=== PATIENT | male | born 1940 | race Caucasian/White ===

== ENCOUNTER 2018-02-14 03:33 | Inpatient (IN) | payer OTHER, BC ==
[~2018-02-14] VITALS: Ht 182.9 cm; Wt 105.6 kg
[2018-02-14] VITALS (7 sets, daily range): BP systolic 148–186; BP diastolic 68–91
--- NOTE | ~2018-02-14 | CATHLAB ---
[facility] [address] [place] [address] INVASIVE PROCEDURE REPORT Name: BAUDILIOSANTO Room #: 207-P [facility] IN [facility].#: [id number] Admission: 02/14/18 Attend Phys: Sophie Condon Discharge: Date of : 38 Date of Service: 02/15/18 1417 Report #: [id number] THIS REPORT FOR: //name// APPROVED REPORT Study performed: 02/15/2018 11:49:43 Patient Details Patient Status: Out-Patient Room #: The patient is a 77 year-old male Event Personnel Jerrell Tsang Information Technology Assistant, Bruno Catherine RN, Zuri Christian RTR, MICKIE Benjamin, Carito Khan Monitor Procedures Performed Left Heart Cath w/or w/o Coronaries [id number] [facility] Indication Positive stress test, Chest pain Risk Factors Hypercholesterolemia, Hypertension, Diabetes Procedure Narrative The Right Groin^ was infiltrated with 1% Lidocaine subcutaneous anesthesia. A PINNACLE 4FR Sheath #[id number] sheath was inserted into the . Coronary angiography was performed using coronary diagnostic catheters. The right coronary system was accessed and visualized with a JR4 catheter. The left coronary system was accessed and visualized with a 4FR JL4.5 #[id number] catheter. The left ventricle was accessed and visualized with a PIGTAIL catheter. Left ventricular/Aortic Valve gradient assessed via catheter pullback. Left ventriculogram was performed in 30 degree projection. Hemostasis was obtained with manual pressure following sheath removal without any complications. The patient tolerated the procedure well and there were no complications associated with the procedure. There was no hematoma. Intraoperative Conscious Sedation Sedation start time: 12.09 Case end Time: 12. Fentanyl 50 mcg Versed 1.5 mg Fluoro Time: 3.21 minutes [facility] [address] [place] [address] INVASIVE PROCEDURE REPORT Name: BAUDILIOSANTO Room #: 207-P [facility] IN ..#: [id number] Admission: 02/14/18 Attend Phys: Sophie Condon Discharge: Date of : 38 Date of Service: 02/15/18 1417 Report #: [id number] Dose: DAP 6019.40 cGycm2 836 mGy Contrast Type and Amount: Visipaque 80 ml Coronary Angiography The patient's coronary anatomy is right dominant. Diagnostic Cath Left Main Patent vessel, with no flow-limiting lesions. LAD Moderate size caliber vessel, traveling down the anterior wall and wrapping around the apex. There are mild calcifications in the proximal and mid segments. There is mild disease in the proximal LAD, 20%. There is mild to moderate diffuse disease in the mid segment, 30-40%. Diagonal 1 Patent vessel, with no flow-limiting lesions. Circumflex Patent vessel, with mild disease in the mid segment, 20%. OM1 Moderate size caliber vessel, with no flow-limiting lesions. OM2 Small size caliber vessel, with no flow-limiting lesions. Right Coronary Dominant vessel, with mild disease in the mid segment, 30%. R PDA Patent vessel, with mild to moderate disease in the proximal segment, 30-40%. RPLV Patent vessel, with mild disease in the proximal segment, 20%. Left Ventriculography Left Ventriculography was not performed. Ejection Fraction was 55-60% based off patient's Nuclear Cardiac Stress Test. An LVEDP was measured and there is no gradient across the outflow tract. Hemodynamics The aortic pressure is 169/77 mmHg with a mean of 100 mmHg. The left ventricular pressure is 169/14 mmHg with a mean of mmHg. The left ventricular end diastolic pressure is 31 mmHg. There was no gradient across the aortic valve upon pullback. Pullback from the left ventricle to the aorta revealed no gradient across the aortic valve. Conclusion 1. Nonobstructive CAD. [facility] [address] [place] [address] INVASIVE PROCEDURE REPORT Name: SANTO SATUDILLO Room #: 207-P [facility] IN ..#: [id number] Admission: 02/14/18 Attend Phys: Sophie Condon Discharge: Date of : 38 Date of Service: 02/15/18 1417 Report #: [id number] 2. Right dominant system. 3. Recommend aggressive risk factor management. <ELECTRONICALLY SIGNED> By: Jerrell Tsang MD 02/15/18 1417 141 141 Jerrell Tsang MD /INF
--- NOTE | ~2018-02-14 | EKG ---
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 : 1940 Requested By: Viviana Stearns Order Number: [id number] MD: Can Rodriguez Measurements Intervals [place] Rate: 42 P: 53 AK: 188 QRS: 47 QRSD: 106 T: 42 QT: 457 QTc: 382 Interpretive Statements Sinus bradycardia Otherwise no significant abnormality Compared to ECG 04/13/2011 07:43:08 No significant changes Electronically Signed On 02-14-2018 8:52:43 CDT by Can Rodriguez [email or web address] <ELECTRONICALLY SIGNED> By: Can Rodriguez MD, [facility] 02/14/18 0852 [phone] Can Rodriguez MD, FACC /EPI
[~2018-02-14 03:33] MED LIST: ASPIRIN EC81 M1 PO; ASPIRIN325 PO; BENICAR20 MG PO; CRESTOR20 MG PO; FISHOIL PO; KEFLEX500 MG PO; KRILL OIL500 MG; NORVASC 5 MG TAB5 MG PO; ULTRAM 50MG TAB50 MG PO; VITAMIN B-150 MG; VITAMIN D-32000 UNIT PO; VITAMIN D400 UNI1; VITAMINC500
[2018-02-14 04:07] LABS: ABSOLUTE NEUTROPHILS 4.2 thou/uL (1.4-8.2); EOSINOPHILS 2.9 % (0.0-3.0); HEMATOCRIT 38.7 % (42.0-52.0); HEMOGLOBIN 13.4 gm/dL (14.0-18.0); LYMPHOCYTES 32.5 % (24.0-44.0); MCH 34.6 pg (26.0-34.0); MCHC 34.7 g/dL (28.0-37.0); MCV 99.8 fL (80.0-100.0); MONOCYTES 10.1 % (1.0-8.0); PLATELET COUNT 163 thou/uL (150-400); POLYS 53.5 % (36.0-66.0); RBC 3.88 mil/uL (4.50-6.00); RDW 13.5 % (10.5-14.5)
[2018-02-14 04:13] LABS: CREATININE 1.7 mg/dL (0.7-1.3); POTASSIUM 4.1 mmol/L (3.5-5.1)
[2018-02-14 04:22] LABS: TROPONIN-I 0.06 ng/mL (<0.06)
[2018-02-14 04:51] LABS: APTT 26.2 Seconds (24.5-32.8); PROTIME 10.2 Seconds (9.3-11.4)
[2018-02-14] MEDS ORDERED: PRILOSEC 20 MG20 MG PO (06:44)
[2018-02-14] MEDS ORDERED: ASPIR 8181 MG PO (06:45)
[2018-02-15] VITALS (11 sets, daily range): BP systolic 128–150; BP diastolic 47–72
[2018-02-15 04:11] LABS: CALCIUM 9.3 mg/dL (8.5-10.1); CREATININE 1.6 mg/dL (0.7-1.3); POTASSIUM 4.5 mmol/L (3.5-5.1)
[2018-02-15 04:12] LABS: HEMATOCRIT 40.1 % (42.0-52.0); HEMOGLOBIN 13.8 gm/dL (14.0-18.0); MCH 34.6 pg (26.0-34.0); MCHC 34.4 g/dL (28.0-37.0); MCV 100.4 fL (80.0-100.0); RDW 13.6 % (10.5-14.5); WBC 9.7 thou/uL (4.0-11.0)
[2018-02-15 04:14] LABS: CHOLESTEROL 135 mg/dL (<200); HDL CHOLESTEROL 30 mg/dL (>40); LDL CHOLESTEROL 91 mg/dL (<100); TC:HDL 4.5 Ratio (Not establshd); TRIGLYCERIDE 72 mg/dL (<150); VLDL 14 mg/dL (<40)
[2018-02-15 04:16] LABS: SERUM ASSESSMENT Slight Lipemia
[2018-02-15] MEDS ORDERED: NORVASC5 M1 PO (15:33)
== END 2018-02-15 17:57 | disposition home or self-care (01) | DRG 287 ==
LOC: ER 03:33 → EROBS 05:00 → 2N 05:00
PROVIDERS: Emergency Medicine; Internal Medicine Cardiovascular Disease; Nurse Practitioner; Nurse Practitioner Gerontology
PROC: B2111ZZ Fluoroscopy of Multiple Coronary Arteries using Low Osmolar Contrast (ICD-10-PCS; principal; 2018-02-15)
PROC: 4A023N7 Measurement of Cardiac Sampling and Pressure, Left Heart, Percutaneous Approach (ICD-10-PCS; principal; 2018-02-15)
PROC: B2151ZZ Fluoroscopy of Left Heart using Low Osmolar Contrast (ICD-10-PCS; principal; 2018-02-15)
DX: R07.89 Other chest pain (principal); N17.9 Acute kidney failure, unspecified; E78.5 Hyperlipidemia, unspecified; K21.9 Gastro-esophageal reflux disease without esophagitis; I12.9 Hypertensive chronic kidney disease with stage 1 through stage 4 chronic kidney disease, or unspecified chronic kidney disease; E86.0 Dehydration; R94.31 Abnormal electrocardiogram [ECG] [EKG]; R73.9 Hyperglycemia, unspecified; N18.9 Chronic kidney disease, unspecified; R00.1 Bradycardia, unspecified; F17.290 Nicotine dependence, other tobacco product, uncomplicated; Z96.651 Presence of right artificial knee joint; Z79.82 Long term (current) use of aspirin; Z79.899 Other long term (current) drug therapy; Z91.041 Radiographic dye allergy status; Z82.49 Family history of ischemic heart disease and other diseases of the circulatory system; Z83.3 Family history of diabetes mellitus; Z80.8 Family history of malignant neoplasm of other organs or systems
CPT/HCPCS: 10081

== ENCOUNTER 2019-10-26 18:41 | Emergency (ER) | payer OTHER, BC ==
[~2019-10-26] VITALS: Ht 182.9 cm; Wt 104.3 kg
[~2019-10-26 18:41] MED LIST changes: +ASPIR 8181 MG PO; +NORVASC5 M1 PO; +PRILOSEC 20 MG20 MG PO
[2019-10-26 19:55] LABS: ABSOLUTE NEUTROPHILS 13.9 thou/uL (1.4-8.2); BASOPHILS 0.4 % (0.0-2.0); EOSINOPHILS 0.5 % (0.0-3.0); HEMATOCRIT 43.9 % (42.0-52.0); HEMOGLOBIN 14.7 gm/dL (14.0-18.0); LYMPHOCYTES 3.9 % (24.0-44.0); MCHC 33.5 g/dL (28.0-37.0); MCV 101.6 fL (80.0-100.0); MONOCYTES 4.3 % (1.0-8.0); PLATELET COUNT 154 thou/uL (150-400); POLYS 90.9 % (36.0-66.0); RBC 4.33 mil/uL (4.50-6.00); RDW 13.3 % (10.5-14.5); WBC 15.3 thou/uL (4.0-11.0)
[2019-10-26 19:59] LABS: ANION GAP 11 mmol/L (7-16); BUN 23 mg/dL (7-18); CHLORIDE 105 mmol/L (98-107); CO2 24 mmol/L (21-32); CREATININE 1.6 mg/dL (0.7-1.3); GLUCOSE 124 mg/dL (74-106); POTASSIUM 4.4 mmol/L (3.5-5.1); SODIUM 140 mmol/L (136-145)
[2019-10-26 20:09] LABS: TROPONIN-I <0.06 ng/mL (<0.06)
[2019-10-26] MEDS ORDERED: TRADJENTA5 MG (20:16)
[2019-10-26] MEDS ORDERED: FINASTERIDE5 MG PO (20:17)
[2019-10-26 20:25] LABS: URINE BILIRUBIN NEGATIVE (Negative); URINE BLOOD NEGATIVE (Negative); URINE CLARITY CLEAR; URINE COLOR YELLOW; URINE GLUCOSE-RANDOM* NEGATIVE (Negative); URINE KETONES NEGATIVE (Negative); URINE LEUKOCYTES-REFLEX NEGATIVE (Negative); URINE NITRITE-REFLEX NEGATIVE (Negative); URINE PROTEIN (DIPSTICK) NEGATIVE (Negative); URINE SPECIFIC GRAVITY 1.015 (1.005-1.035)
[2019-10-26] MEDS ORDERED: ZOFRAN ODT4 MG PO (22:14)
[2019-10-26 22:24] VITALS: BP 148/75
--- NOTE | 2019-10-27 13:29 | EKG ---
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 : 1940 Requested By: Olesya Leblanc Order Number: [id number] MD: Can Rodriguez Measurements Intervals [place] Rate: 60 P: 53 CT: 184 QRS: 54 QRSD: 110 T: 42 QT: 435 QTc: 435 Interpretive Statements Sinus rhythm RSR' in V1 or V2, right VCD Compared to ECG 02/14/2018 03:38:50 Sinus bradycardia no longer present Electronically Signed On 10-27-2019 13:29:21 [employer] by Can Rodriguez [email or web address] <ELECTRONICALLY SIGNED> By: Can Rodriguez MD, [facility] 10/27/19 1329 [id number] Can Rodriguez MD, FACC /EPI
== END 2019-10-26 22:26 | disposition home or self-care (01) ==
LOC: ER 18:41
PROVIDERS: Emergency Medicine
DX: R55 Syncope and collapse (principal); R11.0 Nausea; Z96.651 Presence of right artificial knee joint; Z95.5 Presence of coronary angioplasty implant and graft; Z91.041 Radiographic dye allergy status

== ENCOUNTER → 2020-03-27 | Outpatient (CLI) | payer OTHER, BC ==
[~2020-03-27] MED LIST changes: +FINASTERIDE5 MG PO; +TRADJENTA5 MG; +ZOFRAN ODT4 MG PO
== END ==
LOC: SJCVC 10:55
DX: I45.10 Unspecified right bundle-branch block (principal); R00.1 Bradycardia, unspecified; R94.31 Abnormal electrocardiogram [ECG] [EKG]; I25.10 Atherosclerotic heart disease of native coronary artery without angina pectoris; I10 Essential (primary) hypertension; E78.00 Pure hypercholesterolemia, unspecified; R60.9 Edema, unspecified; R40.0 Somnolence; I12.9 Hypertensive chronic kidney disease with stage 1 through stage 4 chronic kidney disease, or unspecified chronic kidney disease; N18.9 Chronic kidney disease, unspecified; Z79.899 Other long term (current) drug therapy; Z79.82 Long term (current) use of aspirin; Z82.49 Family history of ischemic heart disease and other diseases of the circulatory system; Z87.891 Personal history of nicotine dependence

== ENCOUNTER → 2020-07-16 | Outpatient (CLI) | payer OTHER, BC | LOC: SJCVCIMAG 06-17 07:19 | PROVIDERS: ATTEND Internal Medicine Cardiovascular Disease | DX: R94.31 Abnormal electrocardiogram [ECG] [EKG] (principal); I45.10 Unspecified right bundle-branch block; R00.1 Bradycardia, unspecified; I11.9 Hypertensive heart disease without heart failure; I35.1 Nonrheumatic aortic (valve) insufficiency; I25.10 Atherosclerotic heart disease of native coronary artery without angina pectoris; E78.00 Pure hypercholesterolemia, unspecified ==

== ENCOUNTER → 2021-04-10 | Outpatient (CLI) | payer OTHER, BC | LOC: SJCVC 14:07 | PROVIDERS: ATTEND Internal Medicine Cardiovascular Disease | DX: R00.1 Bradycardia, unspecified (principal); I45.10 Unspecified right bundle-branch block; I12.9 Hypertensive chronic kidney disease with stage 1 through stage 4 chronic kidney disease, or unspecified chronic kidney disease; N18.9 Chronic kidney disease, unspecified; I25.10 Atherosclerotic heart disease of native coronary artery without angina pectoris; E78.00 Pure hypercholesterolemia, unspecified; R60.9 Edema, unspecified; K21.9 Gastro-esophageal reflux disease without esophagitis; N40.0 Benign prostatic hyperplasia without lower urinary tract symptoms; D32.9 Benign neoplasm of meninges, unspecified; Z88.8 Allergy status to other drugs, medicaments and biological substances; Z79.82 Long term (current) use of aspirin; Z79.899 Other long term (current) drug therapy; Z87.891 Personal history of nicotine dependence; Z82.49 Family history of ischemic heart disease and other diseases of the circulatory system ==